=== PATIENT | male | born 1980 | race Caucasian/White ===

== ENCOUNTER 2018-08-30 22:12 | Emergency (ER) | payer SELFPAY ==
[~2018-08-30] VITALS: Ht 185.4 cm; Wt 104.3 kg
[2018-08-30 22:16] VITALS: BP 160/116; Ht 185.4 cm; Wt 104.3 kg
== END 2018-08-30 23:25 | disposition home or self-care (01) ==
LOC: ED 22:12
DX: H66.92 Otitis media, unspecified, left ear (principal)
CPT/HCPCS: J0696; J2001

== ENCOUNTER 2018-09-01 15:40 | Emergency (ER) | payer SELFPAY ==
[~2018-09-01] VITALS: Ht 185.4 cm; Wt 103.4 kg
[2018-09-01 15:52] VITALS: Ht 185.4 cm; Wt 103.4 kg
[2018-09-01 16:27] VITALS: BP 141/95
== END 2018-09-01 16:27 | disposition home or self-care (01) ==
LOC: ED 15:40
DX: H66.92 Otitis media, unspecified, left ear (principal)